=== PATIENT | male | born 1995 | race Caucasian/White ===

== ENCOUNTER 2018-07-28 21:46 | Inpatient (IN) | payer BC ==
[~2018-07-28] VITALS: Ht 172.7 cm; Wt 57.6 kg
[2018-07-28 21:50] VITALS: BP_SYST 121
--- NOTE | 2018-07-28 21:55 | NUR ---
Gina sandoval in ED - 07/28/18 at 2158 by PATRICIA Pt placed to [facility] . Report given to AURORA Sanz.
--- NOTE | 2018-07-28 21:55 | NUR ---
Pt placed to ER bed 07. Report given to AURORA Sanz.
--- NOTE | 2018-07-28 22:11 | NUR ---
Diane Lewis at bedside examining patient.
--- NOTE | 2018-07-28 22:13 | NUR ---
Pt BIB family to ED C/O tea colored urine and bilateral flank pain starting gradually 3 days ago. Pt reportedly started a working out in the past week. He has taken protein powder and creatinine supplement 4 days ago. After noting his symptoms he has increased his water intake. Pt's symptoms are mild in severity. No other injuries and or complaints noted. VSS, no s/s of acute distress. Resting on gurney with rails up
[2018-07-28] MEDS ORDERED: NACL 0.9% 1,000 ML IV ONE (22:15)
[2018-07-28 22:36] LABS: BILIRUBIN,URINE NEGATIVE (NEGATIVE); BLOOD, URINE 3+ (NEGATIVE); CLARITY/URINE CLEAR (CLEAR); COLOR,URINE YELLOW (YELLOW); GLUCOSE,URINE NEGATIVE (NEGATIVE); KETONES,URINE NEGATIVE (NEGATIVE); LEUKOCYTE ESTERASE ,URINE NEGATIVE (NEGATIVE); NITRITE, URINE NEGATIVE (NEGATIVE); PROTEIN URINE TRACE (NEGATIVE); UROBILINOGEN,URINE 0.2 (0.2-1.0)
[2018-07-28 22:40] LABS: BACTERIA,URINE RARE /HPF (None Seen); WBC,URINE 0-3 /HPF (0-3)
--- NOTE | 2018-07-28 22:40 | NUR ---
Portable X Ray bedside, Pt in stable condition
[2018-07-28 22:51] LABS: BASOPHILS % (AUTO) 0.4 % (0.0-2.0); EOSINOPHILS # (AUTO) 0.3 K/uL (0.0-0.4); EOSINOPHILS % (AUTO) 3.9 % (0.0-4.0); HEMATOCRIT 45.3 % (36-54); HEMOGLOBIN 15.4 g/dL (14.0-18.0); LYMPHOCYTES # (AUTO) 2.4 K/uL (1.0-5.5); LYMPHOCYTES % (AUTO) 33.5 % (20.5-51.5); MEAN CORPUSCULAR HEMOGLOBIN 30 pg (27-31); MEAN CORPUSCULAR HGB CONC 34 % (32-36); MEAN CORPUSCULAR VOLUME 89 fL (79.0-98.0); MONOCYTES # (AUTO) 0.4 K/uL (0.0-1.0); MONOCYTES % (AUTO) 5.1 % (1.7-9.3); NEUTROPHILS # (AUTO) 4.1 K/uL (1.8-7.7); NEUTROPHILS % (AUTO) 57.1 % (40.0-70.0); PLATELET COUNT (AUTO) 254 K/uL (130-430); RED BLOOD CELL COUNT(AUTO) 5.11 MIL/uL (4.2-6.2); WHITE BLOOD COUNT (AUTO) 7.2 K/uL (4.8-10.8)
[2018-07-28 23:04] LABS: ALANINE AMINOTRANSFERASE 505 U/L (12-78); ANION GAP 8 (5-15); CALCIUM 9.6 mg/dL (8.4-11.0); CHLORIDE 102 mmol/L (98-107); CREATININE 0.84 mg/dL (0.55-1.30); GFR AFRICAN AMERICAN 144 mL/min (>90); GLUCOSE 94 mg/dL (70-99); POTASSIUM 3.6 mmol/L (3.5-5.1); SODIUM SERUM 142 mmol/L (136-145); TOTAL BILIRUBIN 0.5 mg/dL (0.0-1.0); UREA NITROGEN, BLOOD 10 mg/dL (8-21)
--- NOTE | 2018-07-28 23:55 | NUR ---
Lab called to inform CK Level will take longer to run d/t dilution. Dr. Lewis aware
--- NOTE | 2018-07-29 00:30 | NUR ---
VSS, no s/s of acute distress. Resting on gurney with rails up
--- NOTE | 2018-07-29 01:20 | NUR ---
Pt states he takes no meds of any kind at home
[2018-07-29] MEDS ORDERED: NACL 0.9% 1,000 ML IV ONE (01:30)
--- NOTE | 2018-07-29 02:18 | NUR ---
Patient will be admitted to care of Dr. Swenson. Admitted to Medsurg unit. Will go to room 122. Belongings list completed. Summary report printed. Report will be given at bedside.
--- NOTE | 2018-07-29 02:18 | NUR ---
ADMIT NOTE Received pt from ER to the floor with a diagnosis of rhabdomyolysis. Admission process initiated. patient oriented to pain management, safety and call light-teach back done.
[2018-07-29 02:24] VITALS: BP_SYST 108
[2018-07-29] MEDS: NACL 0.9% 1,000 ML IV SCH ×9 (03:18→21:58)
--- NOTE | 2018-07-29 03:25 | NUR ---
EARPLUGS Earplugs were given as requested by patient.
--- NOTE | 2018-07-29 05:50 | NUR ---
IV FLUIDS New bag of normal saline administered at ordered rate of 300 mls/hr. Patient denies any pain or discomfort at this time. Safety and fall precautions in place. Call light with patient. Will monitor.
--- NOTE | 2018-07-29 06:44 | NUR ---
CLOSING NOTES All needs met throughout shift. Patient is resting in bed. No s/s of acute distress. IVF infusing as ordered. Safety and fall precautions maintained. Will endorse care to oncoming day shift nurse.
[2018-07-29] MEDS ORDERED: POTASSIUM CHLORIDE 20 MEQ TAB.PRT.SR PO PRN (07:00)
[2018-07-29] MEDS ORDERED: MUPIROCIN 2% TOPICAL OINTMENT 22 GM NS PRN (07:00)
[2018-07-29] MEDS ORDERED: ONDANSETRON HCL 4 MG/2 ML VIAL IVP PRN (07:00)
[2018-07-29] MEDS ORDERED: MAGNESIUM SULFATE 50 ML IV PRN (07:00)
[2018-07-29] MEDS ORDERED: ACETAMINOPHEN 325 MG TABLET PO PRN (07:00)
[2018-07-29] MEDS ORDERED: DOCUSATE SODIUM 100 MG CAPSULE PO PRN (07:00)
--- NOTE | 2018-07-29 07:20 | NUR ---
Opening note Patient resting in bed at this time, Afebrile, no SOB. No complaints of pain. Urine output 300cc yellow in color. No nausea, no vomiting noted. Educated patient on the call light system, verbalized understanding. On safety precautions, reinforced. Bed kept in lowest position, 2 side rails up, call light within reach. Will continue to monitor.
[2018-07-29 08:05] VITALS: BP_SYST 106
[2018-07-29 08:16] LABS: ASPARTATE AMINOTRANSFERASE 3805 U/L (10-37)
[2018-07-29 08:26] LABS: CREATINE KINASE MB 14.7 ng/mL (0-3.6)
[2018-07-29 08:45] LABS: BASOPHILS % (AUTO) 0.6 % (0.0-2.0); EOSINOPHILS # (AUTO) 0.3 K/uL (0.0-0.4); EOSINOPHILS % (AUTO) 5.6 % (0.0-4.0); HEMATOCRIT 40.5 % (36-54); HEMOGLOBIN 13.7 g/dL (14.0-18.0); LYMPHOCYTES # (AUTO) 1.7 K/uL (1.0-5.5); MEAN CORPUSCULAR HEMOGLOBIN 30 pg (27-31); MEAN CORPUSCULAR HGB CONC 34 % (32-36); MEAN CORPUSCULAR VOLUME 90 fL (79.0-98.0); MONOCYTES # (AUTO) 0.3 K/uL (0.0-1.0); MONOCYTES % (AUTO) 5.4 % (1.7-9.3); NEUTROPHILS # (AUTO) 2.8 K/uL (1.8-7.7); NEUTROPHILS % (AUTO) 55.4 % (40.0-70.0); PLATELET COUNT (AUTO) 220 K/uL (130-430); RED CELL DISTRIBUTION WIDTH 12.9 % (9.0-15.0); WHITE BLOOD COUNT (AUTO) 5.1 K/uL (4.8-10.8)
[2018-07-29 08:55] LABS: CALCIUM 8.7 mg/dL (8.4-11.0); CREATININE 0.7 mg/dL (0.55-1.30); PHOSPHORUS 3.5 mg/dL (2.7-4.5); POTASSIUM 4.1 mmol/L (3.5-5.1)
[2018-07-29 09:42] LABS: CREATINE KINASE MB 6.9 ng/mL (0-3.6)
--- NOTE | 2018-07-29 09:55 | NUR ---
Spoke with Dr. Swenson regarding critical labs, Dr. Swenson was made aware of labs this morning at 0815 regarding patient's labs that were drawn at 2220 on 07/28/18 (results not reported until this morning), then labs were drawn on 07/29/18 at 0827 and reported to RN and reported to MD as well, orders still to recheck labs in 6 hours, will follow up.
--- NOTE | 2018-07-29 12:30 | NUR ---
Rounds Patient sitting up in bed, eating lunch, family at bedside. No complaints of pain. No nausea, no vomiting. Urine output 800cc yellow, and clear.
[2018-07-29 12:36] VITALS: BP_SYST 128
[2018-07-29 16:31] VITALS: BP_SYST 114
--- NOTE | 2018-07-29 16:50 | NUR ---
Critical value/ IV fluids Patient noted with CK >93123, paged Dr. Swenson, new orders received to increase IV fluids to 500ml/hr noted and carried out.
[2018-07-29 17:03] LABS: CREATINE KINASE MB 6.9 ng/mL (0-3.6)
--- NOTE | 2018-07-29 18:37 | NUR ---
Closing note Patient sitting up in bed at this time, no complaints of pain, no SOB. No nausea, no vomiting noted. IV site patent, intact, and infusing as ordered, no adverse side effects noted. On safety precautions, reinforced, bed kept in lowest position, bed alarm on, call light within reach. Patient in stable condition at this time, All needs met.
--- NOTE | 2018-07-29 19:18 | NUR ---
OPENING NOTES RECEIVED PATIENT IN BED AAO X4. DENIES ANY PAIN. BREATHING UNLABORED ON ROOM AIR. IVF INFUSING ORDERED WITH IV LINE PATENT. PLAN OF CARE REVIEWED WITH PATIENT. CALL LIGHT WITH IN REACH.
[2018-07-29 21:13] VITALS: BP_SYST 114
--- NOTE | 2018-07-29 21:15 | NUR ---
ROUNDS PATIENT VITAL SIGNS STABLE. FAMILY AT BEDSIDE. IVF INFUSING.
[2018-07-29 22:40] LABS: CREATINE KINASE MB 4.7 ng/mL (0-3.6)
--- NOTE | 2018-07-29 23:15 | NUR ---
LAB RESULT SPOKED WITH DR CONNOR MADE AWARE OF LATEST CK TOTAL RESULT REMAINS >16,000. NO NEW ORDERS MADE.
[2018-07-30 00:40] VITALS: BP_SYST 110
[2018-07-30] MEDS: NACL 0.9% 1,000 ML IV SCH ×10 (00:40→20:13)
--- NOTE | 2018-07-30 00:40 | NUR ---
ROUNDS PATIENT AWAKE. DENIES PAIN. IVF INFUSING ORDERED. PATIENT MADE AWARE OF NPO STATUS FOR ABDOMINAL ULTRASOUND.
--- NOTE | 2018-07-30 02:35 | NUR ---
ROUNDS PATIENT RESTING IN BED. NO DISTRESS NOTED. IVF CONTINUOUSLY INFUSING ORDERED. CALL LIGHT WITH IN REACH.
--- NOTE | 2018-07-30 04:48 | NUR ---
ROUNDS PATIENT RESTING IN BED. NO DISTRESS NOTED. VOIDING FREELY WITH CLEAR YELLOW URINE
[2018-07-30 06:20] LABS: BASOPHILS % (AUTO) 0.3 % (0.0-2.0); EOSINOPHILS # (AUTO) 0.3 K/uL (0.0-0.4); EOSINOPHILS % (AUTO) 5.4 % (0.0-4.0); HEMATOCRIT 38.2 % (36-54); HEMOGLOBIN 12.9 g/dL (14.0-18.0); LYMPHOCYTES # (AUTO) 2.2 K/uL (1.0-5.5); MEAN CORPUSCULAR HEMOGLOBIN 30 pg (27-31); MEAN CORPUSCULAR HGB CONC 34 % (32-36); MEAN CORPUSCULAR VOLUME 90 fL (79.0-98.0); MONOCYTES # (AUTO) 0.4 K/uL (0.0-1.0); MONOCYTES % (AUTO) 6.4 % (1.7-9.3); NEUTROPHILS # (AUTO) 2.9 K/uL (1.8-7.7); NEUTROPHILS % (AUTO) 49.9 % (40.0-70.0); PLATELET COUNT (AUTO) 197 K/uL (130-430); RED BLOOD CELL COUNT(AUTO) 4.26 MIL/uL (4.2-6.2); RED CELL DISTRIBUTION WIDTH 12.7 % (9.0-15.0); WHITE BLOOD COUNT (AUTO) 5.9 K/uL (4.8-10.8)
[2018-07-30 06:24] LABS: ALANINE AMINOTRANSFERASE 337 U/L (12-78); ALBUMIN 2.8 g/dL (3.4-4.8); ANION GAP 5 (5-15); ASPARTATE AMINOTRANSFERASE 1464 U/L (10-37); CALCIUM 8.1 mg/dL (8.4-11.0); CHLORIDE 109 mmol/L (98-107); GLUCOSE 86 mg/dL (70-99); PHOSPHORUS 3.7 mg/dL (2.7-4.5); POTASSIUM 3.8 mmol/L (3.5-5.1); SODIUM SERUM 142 mmol/L (136-145); TOTAL BILIRUBIN 0.4 mg/dL (0.0-1.0); UREA NITROGEN, BLOOD 9 mg/dL (8-21)
[2018-07-30 06:34] LABS: GFR AFRICAN AMERICAN 178 mL/min (>90)
--- NOTE | 2018-07-30 06:39 | NUR ---
CLOSING NOTES PATIENT RESTING IN BED. DENIES ANY PAIN. IVF INFUSING ORDERED.PATIENT NEEDS ATTENDED. CALL LIGHT WITH IN REACH. BED IN LOWEST LOCKED POSITION.
--- NOTE | 2018-07-30 07:20 | NUR ---
Opening note Patient resting in bed at this time, Afebrile, no SOB. No complaints of pain. Urine output 2000 yellow, clear. IV site patent and intact. No nausea, no vomiting noted. Educated patient on the call light system, verbalized understanding. On safety precautions, reinforced. Bed kept in lowest position, bed alarm on, 2 side rails up, call light within reach. Will continue to monitor.
[2018-07-30 07:46] LABS: CREATINE KINASE MB 3.6 ng/mL (0-3.6)
--- NOTE | 2018-07-30 08:00 | NUR ---
Ultrasound Patient NPO, ultrasound at bedside at this time. Will provide meal tray after ultrasound is completed.
[2018-07-30 08:30] VITALS: BP_SYST 117
--- NOTE | 2018-07-30 10:30 | NUR ---
MD rounds Dr. Gage at bedside, patients abdominal ultrasound results negative. No complaints of pain from patient. New orders for Nephro consult with Dr. Thayer.
--- NOTE | 2018-07-30 10:42 | NUR ---
CONSULTATION: REASON FOR CONSULT: RHABDOMYOLYSIS CONSULTING PHYSICIAN: LAURO BRINK MD ORDERED BY: DEMIAN SEVERINOUVICENTE ESPINOZA SPOKE WITH CYNDEE [phone]
--- NOTE | 2018-07-30 11:45 | NUR ---
Rounds/urine output Patient noted with urine output of 1300 at this time, yellow and clear. No complaints of pain.
[2018-07-30 12:46] VITALS: BP_SYST 119
--- NOTE | 2018-07-30 13:04 | NUR ---
Rounds Patient sitting up in bed, visitors at bedside. No complaints of pain, nausea, or vomiting. Patient eating lunch, tolerating well. IV site patent, intact and infusing fluids as ordered.
[2018-07-30 14:24] LABS: CREATINE KINASE MB 4.4 ng/mL (0-3.6)
--- NOTE | 2018-07-30 15:59 | NUR ---
Rounds Patient sitting up in chair, no complaints of pain or discomfort noted. IV fluids infusing as ordered. IV site patent and intact. Urine output of 900cc yellow, clear at this time.
[2018-07-30 17:08] VITALS: BP_SYST 132
--- NOTE | 2018-07-30 18:29 | NUR ---
Closing note Patient sitting up in bed at this time, visitors at bedside, no complaints of pain, no SOB. No nausea, no vomiting noted. IV site patent, intact, and infusing as ordered, no adverse side effects noted. On safety precautions, reinforced, bed kept in lowest position, call light within reach. Patient in stable condition at this time, All needs met.
--- NOTE | 2018-07-30 19:15 | NUR ---
Opening notes Patient sitting in chair, talking to visitor. No signs of distress noted. Breathing is even and unlabored. IV is patent and intact. No needs at this time. Call light with the patient. Safety precautions in place.
[2018-07-30 20:18] VITALS: BP_SYST 112
--- NOTE | 2018-07-30 20:46 | NUR ---
PAGED PAGED DOCTOR THAPA
--- NOTE | 2018-07-30 20:50 | NUR ---
Dr. Romeo called back spoke with the patient and answered any questions and concerns.
--- NOTE | 2018-07-30 23:00 | NUR ---
Sleeping No signs of distress noted. Breathing is even and unlabored. IV patent and intact. Call light with the patient. Safety precautions in place.
[2018-07-31 00:44] VITALS: BP_SYST 87
--- NOTE | 2018-07-31 02:40 | NUR ---
Sleeping No signs of distress. Breathing even and unlabored. Emptied 500 ml from urinal. No other needs. Call light with the patient. Safety precautions in place.
[2018-07-31] MEDS: NACL 0.9% 1,000 ML IV SCH ×4 (02:49→23:41)
--- NOTE | 2018-07-31 04:56 | NUR ---
Sleeping No signs of distress noted. Breathing is even and unlabored. Emptied 600 ml from urinal. No other needs. Call light with the patient. Safety precautions in place.
[2018-07-31 06:24] LABS: BASOPHILS % (AUTO) 0.2 % (0.0-2.0); EOSINOPHILS # (AUTO) 0.3 K/uL (0.0-0.4); EOSINOPHILS % (AUTO) 4.6 % (0.0-4.0); HEMATOCRIT 39.3 % (36-54); HEMOGLOBIN 13.4 g/dL (14.0-18.0); LYMPHOCYTES # (AUTO) 2.2 K/uL (1.0-5.5); LYMPHOCYTES % (AUTO) 37.6 % (20.5-51.5); MEAN CORPUSCULAR HEMOGLOBIN 31 pg (27-31); MEAN CORPUSCULAR HGB CONC 34 % (32-36); MEAN CORPUSCULAR VOLUME 90 fL (79.0-98.0); MONOCYTES # (AUTO) 0.4 K/uL (0.0-1.0); NEUTROPHILS # (AUTO) 2.9 K/uL (1.8-7.7); NEUTROPHILS % (AUTO) 50.6 % (40.0-70.0); PLATELET COUNT (AUTO) 215 K/uL (130-430); RED BLOOD CELL COUNT(AUTO) 4.39 MIL/uL (4.2-6.2); RED CELL DISTRIBUTION WIDTH 12.6 % (9.0-15.0); WHITE BLOOD COUNT (AUTO) 5.8 K/uL (4.8-10.8)
--- NOTE | 2018-07-31 06:46 | NUR ---
Closing notes Patient resting comfortably in bed. no signs of distress noted. Breathing is even and unlabored. IV is patent and intact, infusing fluids. All needs met throughout the shift. Call light with the patient. Safety precautions in place. Will endorse care to day shift RN.
[2018-07-31 06:57] LABS: ALANINE AMINOTRANSFERASE 349 U/L (12-78); ALBUMIN 3.2 g/dL (3.4-4.8); ANION GAP 8 (5-15); BILIRUBIN,DIRECT 0.1 mg/dL (0.0-0.3); CALCIUM 9.1 mg/dL (8.4-11.0); CHLORIDE 105 mmol/L (98-107); CREATININE 0.71 mg/dL (0.55-1.30); GLUCOSE 85 mg/dL (70-99); POTASSIUM 3.8 mmol/L (3.5-5.1); SODIUM SERUM 140 mmol/L (136-145); TOTAL BILIRUBIN 0.5 mg/dL (0.0-1.0); UREA NITROGEN, BLOOD 7 mg/dL (8-21)
--- NOTE | 2018-07-31 07:25 | NUR ---
AM ROUNDS: PATIENT ON THE BED,AWAKE.REPORT GIVEN BY NIGHT NURSE MANUEL. CALL LIGHT WITH IN REACH. BED LOCKED AT LOWEST POSITION.NO NEEDS THIS TIME.
[2018-07-31 07:54] LABS: ASPARTATE AMINOTRANSFERASE 1317 U/L (10-37)
[2018-07-31 07:56] LABS: GFR AFRICAN AMERICAN 175 mL/min (>90)
[2018-07-31 08:28] VITALS: BP_SYST 114
[2018-07-31 08:33] LABS: CREATINE KINASE MB 2.1 ng/mL (0-3.6)
--- NOTE | 2018-07-31 10:30 | NUR ---
MD ROUNDS: PATIENT SEEN BY DR SHEA AND DISCUSSED PLAN OF CARE AND UPDATES OF LABS WITH THE PATIENT. PATIENT SATISFIED WITH THE PLAN OF CARE AND TREATMENT.
[2018-07-31] MEDS ORDERED: MULTIVITAMINS TAB 1 TABLET PO ONE (11:00)
[2018-07-31 11:47] VITALS: BP_SYST 112
--- NOTE | 2018-07-31 12:33 | NUR ---
RN ROUNDS: LUNCH SERVED. PATIENT EATING DURING ROUNDS. STABLE.
--- NOTE | 2018-07-31 15:01 | NUR ---
RN ROUNDS: RESTING. NO COMPLAINED MADE.
[2018-07-31 16:42] VITALS: BP_SYST 117
--- NOTE | 2018-07-31 18:42 | NUR ---
CLOSING NOTES: PATIENT SITTING ON THE CHAIR. VISITOR AT THE BEDSIDE. NO OTHER NEEDS THIS TIME.
--- NOTE | 2018-07-31 19:30 | NUR ---
INITIAL NOTES Received handoff report from offgoing nurse at the bedside. Patient is awake and alert, sitting at chair at the bedside. Fiance and mother is at the bedside. No SOB, no acute distress, no complaints of pain at this time. IV site intact, dressing clean and dry, currently infusing IVF at the ordered rate, see eMAR. Call light is within reach. Encouraged patient to call for assistance. Explained plan of care to the patient, verbalize understanding at this time. Will continue with plan of care.
[2018-07-31 20:00] VITALS: BP_SYST 110
[2018-07-31] MEDS: MULTIVITAMINS TAB 1 TABLET PO SCH (20:10)
--- NOTE | 2018-07-31 22:00 | NUR ---
Patient resting comfortably in bed, eyes closed. Breathing even and unlabored, visible chest rise and fall noted. No SOB, no acute distress, no signs of pain or facial grimacing. Stable. Call light within reach.
[2018-07-31 23:28] VITALS: BP_SYST 108
--- NOTE | 2018-07-31 23:44 | NUR ---
Patient resting comfortably in bed, awake and alert. No complaints of pain at this time, no sob, no acute distress. IVF bag changed as needed, currently infusing at the ordered rate, see eMAR. Call light within reach. Encouraged patient to call for assistance.
--- NOTE | 2018-08-01 03:30 | NUR ---
Patient resting comfortably in bed, eyes closed. Breathing is even and unlabored with visible chest rise and fall noted. No SOB, no acute distress, no signs of pain or facial grimacing noted. Bed is locked, in the lowest position, 2x side rails up, bed alarm is on. Call light is within reach.
[2018-08-01] MEDS: NACL 0.9% 1,000 ML IV SCH (05:59)
[2018-08-01 06:03] LABS: BASOPHILS % (AUTO) 0.3 % (0.0-2.0); EOSINOPHILS # (AUTO) 0.3 K/uL (0.0-0.4); EOSINOPHILS % (AUTO) 4.3 % (0.0-4.0); HEMATOCRIT 40.7 % (36-54); HEMOGLOBIN 13.8 g/dL (14.0-18.0); LYMPHOCYTES # (AUTO) 2.3 K/uL (1.0-5.5); LYMPHOCYTES % (AUTO) 35.6 % (20.5-51.5); MEAN CORPUSCULAR HEMOGLOBIN 30 pg (27-31); MEAN CORPUSCULAR HGB CONC 34 % (32-36); MEAN CORPUSCULAR VOLUME 89 fL (79.0-98.0); MONOCYTES # (AUTO) 0.4 K/uL (0.0-1.0); MONOCYTES % (AUTO) 6.1 % (1.7-9.3); NEUTROPHILS # (AUTO) 3.4 K/uL (1.8-7.7); NEUTROPHILS % (AUTO) 53.7 % (40.0-70.0); PLATELET COUNT (AUTO) 225 K/uL (130-430); RED BLOOD CELL COUNT(AUTO) 4.55 MIL/uL (4.2-6.2); RED CELL DISTRIBUTION WIDTH 12.6 % (9.0-15.0); WHITE BLOOD COUNT (AUTO) 6.3 K/uL (4.8-10.8)
--- NOTE | 2018-08-01 06:04 | NUR ---
Closing Notes Patient is awake and alert, resting comfortably in bed. No SOB, no acute distress, no complaints of pain at this time. IVF bag changed as needed, currently infusing NS at 150ml/hr per md order, see eMAR for details. Bed is locked, in the lowest position, 2x side rails up. Patient refuses bed alarm at this time. Call light within reach. Encouraged patient to call for assistance. Fall and safety precautions maintained. All needs have been met during this shift. Will endorse care to oncoming dayshift nurse.
[2018-08-01 06:49] LABS: ALANINE AMINOTRANSFERASE 301 U/L (12-78); ALBUMIN 3.3 g/dL (3.4-4.8); ANION GAP 6 (5-15); ASPARTATE AMINOTRANSFERASE 668 U/L (10-37); BILIRUBIN,DIRECT 0.1 mg/dL (0.0-0.3); CHLORIDE 105 mmol/L (98-107); CREATININE 0.68 mg/dL (0.55-1.30); GLUCOSE 121 mg/dL (70-99); POTASSIUM 3.7 mmol/L (3.5-5.1); SODIUM SERUM 139 mmol/L (136-145); TOTAL BILIRUBIN 0.4 mg/dL (0.0-1.0); UREA NITROGEN, BLOOD 15 mg/dL (8-21)
[2018-08-01 06:54] LABS: GFR AFRICAN AMERICAN 184 mL/min (>90)
[2018-08-01 08:01] VITALS: BP_SYST 103
--- NOTE | 2018-08-01 08:10 | NUR ---
OPENING NOTE patient received resting in bed A&O x4, patient denies any acute distress or pain at this time, breathing is even and unlabored on room air, educated patient on plan of care and call light system, IVF infusing as ordered, will continue to monitor, safety precautions in place, call light within reach.
[2018-08-01 08:19] LABS: CREATINE KINASE MB 1.4 ng/mL (0-3.6)
[2018-08-01] MEDS: MULTIVITAMINS TAB 1 TABLET PO SCH (08:35)
--- NOTE | 2018-08-01 10:15 | NUR ---
NOTES patient is sitting in chair at bedside, IVF infusing as ordered, breathing is even and unlabored on room air, fiance is at bedside, will continue to monitor, safety precautions in place, call light within reach.
[2018-08-01 10:53] VITALS: BP_SYST 103
== END 2018-08-01 11:25 | disposition home or self-care (01) | DRG 558 ==
LOC: SED 21:46 → SMU 07-29 01:56
PROVIDERS: ADMIT Family Medicine; ATTEND Family Medicine
DX: M62.82 Rhabdomyolysis (principal); R74.0 Nonspecific elevation of levels of transaminase and lactic acid dehydrogenase [LDH]
CPT/HCPCS: 36415; 71045; 76700-TC; 80048; 80053; 80076; 81000-TC; 82550-TC; 82553-TC; 83036; 83735-TC; 84100-TC; 84484; 85025; 93005; 96360; 96361; 99285; J7030